=== PATIENT | female | born 1935 | race Caucasian/White ===

== ENCOUNTER 2016-04-26 19:00 | Emergency (ER) | payer MEDICARE, OTHER ==
[~2016-04-26] VITALS: Ht 154.9 cm; Wt 68.2 kg
[~2016-04-26 19:00] MED LIST: ASPI-973 PO; BUSP10TA2 PO; CALC-942 PO; CEPH500C PO; COLE1TAB PO; LEVO100T6 PO; LOM PO; MULT-1073 PO; Meclizine Hcl PO; OMEG-38 PO; POTA10CA42 PO; RALO60TA PO; TRIA1TAB3 PO; VERA240C PO
[2016-04-26 19:22] VITALS: BP 148/88; PULSE 80; RESP 16; O2SAT 95
[2016-04-26 19:55] LABS: BASOPHILS % (AUTO) 0.1 % (0-3); EOSINOPHILS % (AUTO) 1.6 % (0-5); MONOCYTES % (AUTO) 12.3 % (4-12); Mean Corpuscular Hemoglobin 30.5 pg (27.0-35.0); Mean Corpuscular Volume 90.3 fL (81-100); NEUTROPHILS % (AUTO) 66.7 % (40-74); Platelet Count 274 bil/L (150-400)
--- NOTE | 2016-04-26 21:18 | ED.REPORT ---
HPI-General Illness Date of Service Apr 26, 2016 ED Provider: Jose Daniel Kohler MD A 80 year old female with a history of hypertension, hypothyroidism, IBS and left breast cancer s/p resection presents to the ED complaining of diarrhea that began 3 days ago. Patient reports 4-5 episodes of diarrhea per hour. Her symptoms initially began with nausea and vomiting until the diarrhea became increasingly worse. Her symptoms have been persistent since onset. Associated symptoms include decreased fluid intake, decreased appetite and lightheadedness. Patient's daughter recently had Noro virus but denies any recent contact. Patient's currently has similar symptoms. She denies any recent travel or history of C. Diff. Patient denies abdominal pain, fever, chills, chest pain, SOB, numbness/tingling, weakness or dysuria. Nursing Notes Stated Complaint: VOMITING/DIARRHEA Chief Complaint: Female Abdominal Pain Nursing Notes Reviewed: Yes Allergies: Coded Allergies: aripiprazole (Verified Allergy, Unknown, 04/26/16) citalopram hydrobromide (Verified Allergy, Unknown, 04/26/16) escitalopram oxalate (Verified Allergy, Unknown, 04/26/16) nefazodone HCl (Verified Allergy, Unknown, 04/26/16) niacin (Verified Allergy, Unknown, 04/26/16) nortriptyline (Verified Allergy, Unknown, 04/26/16) venlafaxine HCl (Verified Allergy, Unknown, 04/26/16) doxycycline (Verified Adverse Reaction, Unknown, GI problems, 04/26/16) Scheduled Aspirin (Aspirin) 81 Mg Tablet 81 MG PO DAILY Buspirone (Buspirone) 10 Mg Tablet 15 MG PO BID Calcium Cit/Mag/D3/Zn/Pharmacology Teacher/Reddy (Calcium Citrate Plus Tablet) 1 Each Tablet 1 EACH PO DAILY Cephalexin (Cephalexin) 500 Mg Capsule 500 MG PO bid x 7 days Colestipol HCl (Colestid) 1 Gm Tablet 2 GM PO HS Levothyroxine (Levothyroxine) 100 Mcg Tablet 100 MCG PO DAILY Loperamide (Loperamide) 2 Mg Capsule 2 MG PO Q4H Multivits-Min/FA/Lycopene/Lut (Centrum Silver Tablet) 1 Each Tablet 1 EACH PO DAILY [place]-3/Dha/Epa/Fish Oil (Fish Oil 1,000 mg Softgel) 1 Each Capsule 1 EACH PO BID Potassium Chloride (Potassium Chloride) 10 Meq Capsule.er 20 MEQ PO DAILY Raloxifene (Evista) 60 Mg Tablet 60 MG PO DAILY Triamterene/HCTZ 37.5-25 mg (Triamterene/HCTZ 37.5-25 mg) 1 Each Tablet 1 EACH PO DAILY Verapamil ER (Verapamil ER) 240 Mg Cap24h.pel 240 MG PO DAILY Scheduled PRN ([Meclizine Hcl]) 25 MG TABLET 25 MG PO BID PRN PRN For Dizziness Diphenoxylate/Atropine (Diphenoxylate-Atrop 2.5-0.025) 2.5 Mg Tablet 1-2 TAB PO TID PRN PRN For Diarrhea or Loose Stool Ondansetron (Zofran) 4 Mg Tablet 4 MG PO Q4H PRN PRN For Nausea General Time Seen by MD: 21:17 Chief Complaint Abdominal pain Hx Obtained From: Patient Arrived By: Walk-in Sudden in Onset?: No Onset Occurred: 3 days ago Symptom Duration: Since onset Associated with: Reports: Vomiting, Denies: Abdominal pain, Chest pain, Fever Pertinent Negative: Pt denies other symptoms Recent Healthcare: No recent doctor visit, No recent hospitalization Past Medical History Past Medical History IBS Left Br Cancer, s/p resection Anxiety and Depression Past Surgical History 2 left eyelid surgery for ptosis Smoking History Former Smoker Social History Alcohol Use: "Social" Drug Use: Denies drug use Other Social History: Good social support, , Local resident Ambulatory Status Independent Review of Systems Full Review of Systems Constitutional: Denies: Chills, Fever Respiratory: Denies: Shortness of breath Cardiovascular: Denies: Chest pain GI: Reports: Diarrhea, Nausea, Vomiting, Denies: Abdominal pain Female: Denies: Dysuria Neurologic: Denies: Change LOC, Lightheaded, Numbness Complete sys rev & neg: except as marked. Physical Exam Vital Signs Vital Signs Date Time Temp Pulse Resp B/P Pulse Ox O2 Delivery O2 Flow Rate FiO2 04/26/16 22:22 78 16 141/85 95 Room Air 04/26/16 19:22 35.8 80 16 148/88 95 Room Air Initial VS: Reviewed Neck: Supple, Non-tender, Full range of motion Extremities: Vascular intact, Neuro intact, No swelling, No tenderness Skin: Warm, Dry, No cyanosis Neurologic: Alert, Oriented, Nonfocal Psychiatric: Mood/affect normal, Behavior normal, Normal thought content General/Constitutional: Awake, Alert Head / Eyes: Atraumatic, Normocephalic, PERRL ENT: Atraumatic, Airway patent, Mucous membranes moist Respiratory / Chest: Atraumatic, Breath sounds NL, Breath sounds = bilat, No respiratory distress Cardiovascular: Heart rate NL, Regular rhythm, Heart sounds NL, No gallop, No murmurs, No rubs, Pulses = bilaterally (Good radial pulses ) Abdomen: Atraumatic, Soft, Non-tender, No distention Interpretation & Diagnostics Lab Results Interpretation Result Diagram: 04/26/16194404/26/161944 Test 04/26/16 19:45 White Blood Count 8.8th/mm3 (3.8-10.1) Red Blood Count 4.75mil/mm3 (3.90-5.20) Hemoglobin 14.5g/dL (12.0-15.6) Hematocrit 42.9% (35.0-46.0) Mean Corpuscular Volume 90.3fL (81-100) Mean Corpuscular Hemoglobin 30.5pg (27.0-35.0) Mean Corpuscular Hemoglobin Concent 33.8% (32.0-37.0) Red Cell Distribution Width 13.6% (12.3-15.4) Platelet Count 274bil/L (150-400) Neutrophils (%) (Auto) 66.7% (40-74) Lymphocytes (%) (Auto) 19.1% (14-46) Monocytes (%) (Auto) 12.3% (4-12) Eosinophils (%) (Auto) 1.6% (0-5) Basophils (%) (Auto) 0.1% (0-3) Sodium Level 138mEq/L (134-144) Potassium Level 3.3mEq/L (3.5-5.2) Chloride Level 101mEq/L (97-108) Carbon Dioxide Level 20mmol/L (18-29) Blood Urea Nitrogen 17mg/dL (8-27) Creatinine 0.93mg/dL (0.57-1.00) Estimat Glomerular Filtration Rate 84mL/min (>59) Glucose Level 100mg/dL (60-99) Calcium Level 8.6mg/dL (8.5-10.1) Magnesium Level 2.0mg/dL (1.6-2.6) Total Bilirubin 0.3mg/dL (0.0-1.2) Aspartate Amino Transf (AST/SGOT) 46U/L (0-50) Alanine Aminotransferase (ALT/SGPT) 39U/L (0-32) Alkaline Phosphatase 64U/L (25-165) Total Protein 7.3g/dL (6.4-8.4) Albumin 4.2g/dL (3.4-5.0) Lipase 15U/L (13-60) Hold Gonzales Top Tube Received (Received) ECG Interpretation ECG Interpretation: Sinus Rhythm Normal P axis No acute ST changes No T wave abnormalities Rate 81 bpm Probable LVH with secondary repol abnormalities Time: 20:28 Interpreted by: ED physician Re-Eval/Medical Decision Med Decision/Clinical Course Patient is a 80-year-old female who presents to the emergency department with several episodes of nausea/nonbloody emesis now progressing to persistent diarrhea throughout the day today. Upon arrival she appears slightly dehydrated but was otherwise hemodynamically stable and in no apparent distress. She is afebrile with benign abdominal examination. Patient was treated with the below medications: IV fluids and Zofran/imodium Laboratory studies were notable as below: UA negative CBC unremarkable CMP notable for K+ 3.3 Overall presentation suggestive of viral gastroenteritis. This is further reinforced by the fact that patient's is now developing similar symptoms. Patient is not immunocompromised, is hemodynamically stable and does not appear significantly dehydrated. Symptoms improved with treatment as above. Patient is afebrile, without leukocytosis and without bloody stool. My suspicion for bacterial process is relatively low. She has not been on antibiotics recently and has no history of C. difficile. I will defer C. difficile testing at this time as she seems relatively low risk. She had been prescribed Zofran for nausea, Imodium for diarrhea and advised to orally rehydrate with Gatorade/Pedialyte. At this time I see no indication to obtain further workup or admit the patient as she is stable and tolerating oral fluids. Follow-up and return precautions were reviewed in detail and the patient was discharged in good condition. Time of Eval: 22:10 Patient Status: Condition improved Re-Evaluation/Progress Note: Patient is rechecked. She is informed of her lab results and diagnosis. All of the patient's questions are adressed. She understands and agrees with the treatment plan to discharge. Counseled Regarding: Diagnosis, Lab results, Need for follow-up, When/why to return to ED Discharge & Departure Primary Impression: Viral gastroenteritis Additional Impressions: Diarrhea Vomiting Vomiting type: unspecified Vomiting Intractability: unspecified Nausea presence: unspecified Qualified Code: R11.10 - Vomiting, unspecified Dehydration Hypokalemia Disposition: Home Discharge Condition All VS Reviewed: Yes Condition: Improved Patient Instructions: Gastroenteritis (ED) Additional Instructions: Thank you for seeking care at the emergency room. It is difficult for us to make definitive diagnoses in the ED but we believe that you are experiencing viral gastroenteritis. Our primary goal today in the ED was to evaluate you for any life-threatening conditions. Your evaluation was reassuring. Please take Imodium for diarrhea and Zofran for nausea Make sure to get plenty of fluids ( I recommend Gatorade), eat bland diet, and get plenty of rest. You should follow-up with your primary doctor in the next week. You should return to the ED immediately if you develop fevers, uncontrollable vomiting, bloody stool, worsening dehydration, lightheadedness, weakness or any other concerning signs or symptoms. Thank you for letting us partake in your care today. Referrals: Ricky Renteria MD (PCP) Scribe Attestation Portions of this note were transcribed by Demetris Whittington. I, Dr. Kohler personally performed the history, physical exam and medical decision-making; I reviewed and confirmed the accuracy of the information in the transcribed note. Signed by: Jose Eduardo Brooks, 04/26/16 [id number]. copies to: Ricky Renteria MD, Beck O MD Apr 26, 2016 21:18 DEMETRIS WHITTINGTON Apr 26, 2016 21:28
[2016-04-26] MEDS ORDERED: 0.9% Sodium Chloride 1,000 ML IV ONE (21:20)
[2016-04-26] MEDS ORDERED: Ondansetron 2 mg/mL 2 mL Inj IVPUSH ONE (21:20)
[2016-04-26] MEDS ORDERED: ONDA4TAB6 PO (22:04)
[2016-04-26] MEDS ORDERED: LOPE2CAP PO (22:04)
[2016-04-26 22:22] VITALS: BP 141/85; PULSE 78; RESP 16; O2SAT 95
== END 2016-04-26 22:22 | disposition home or self-care (01) ==
LOC: SED 19:00
DX: A08.4 Viral intestinal infection, unspecified (principal); E86.0 Dehydration; E87.6 Hypokalemia; Z79.82 Long term (current) use of aspirin; Z87.891 Personal history of nicotine dependence; Z88.8 Allergy status to other drugs, medicaments and biological substances
CPT/HCPCS: 36415; 80053; 83690; 83735; 85025; 93005; 99284; J7030